=== PATIENT | female | born 1965 | race Caucasian/White ===

== ENCOUNTER → 2018-11-01 | Outpatient (CLI) | payer OTHER ==
[~2018-11-01] MED LIST: AMOX500 PO; CLIN300 PO; METF500 PO; PENVK500 PO; QUET100; SULTRISS
[2018-11-04 06:08] LABS: Stool Occult Bld Immuno 1 Negative (NEGATIVE)
== END ==
LOC: LAB 09:00 → LAB SHORT 09:00 → LAB FUT 10-30 11:25
PROVIDERS: Family Medicine
DX: E11.65 Type 2 diabetes mellitus with hyperglycemia (principal); B18.2 Chronic viral hepatitis C; D50.9 Iron deficiency anemia, unspecified
CPT/HCPCS: 82274